=== PATIENT | male | born 1935 | race Caucasian/White ===

== ENCOUNTER 2022-01-14 12:39 | Inpatient (IN) | payer BC, MEDICARE ==
[~2022-01-14] VITALS: Ht 175.3 cm; Wt 88.1 kg
[~2022-01-14 12:39] MED LIST: HYDR-4353 PO; ZOF4T PO
[2022-01-14] MEDS ORDERED: normal saline 1000ML IV soln IVB ONE ×2 (12:55→14:40)
[2022-01-14] MEDS ORDERED: CefTRIAXone 2gm/D5W 50ml BAG 50 ML IV ONE (13:20)
--- NOTE | 2022-01-14 13:23 | NUR ---
02 SAT 78-83% RA. 10L/MIN NON-REBREATHER APPLIED. 02 SAT 99%.
[2022-01-14 13:46] LABS: BASOPHILS % (AUTO) 0.1 % (0-1); EOSINOPHILS % (AUTO) 0 % (0-6); HEMATOCRIT 35.4 % (42.0-52.0); HEMOGLOBIN 11.2 g/dl (14.0-17.9); LYMPHOCYTES # (AUTO) 0.5 X10'3 (1.1-4.8); LYMPHOCYTES % (AUTO) 6.3 % (21-51); MEAN CORPUSCULAR HEMOGLOBIN 25.6 PG (27.0-31.0); MEAN CORPUSCULAR HGB CONC 31.6 g/dL (33.0-36.5); MEAN CORPUSCULAR VOLUME 81.1 FL (78-98); MEAN PLATELET VOLUME 9.4 FL (7.4-10.4); MONOCYTES # (AUTO) 1.1 X10'3 (0-0.9); MONOCYTES % (AUTO) 13.2 % (2-12); NEUTROPHILS # (AUTO) 6.8 X10'3 (1.8-7.7); NEUTROPHILS % (AUTO) 80.4 % (42-75); PLATELET COUNT 228 X10'3 (140-440); RED BLOOD COUNT 4.37 X10'6 (4.70-6.10); WHITE BLOOD COUNT 8.5 X10'3 (4.5-11.0)
[2022-01-14 14:10] LABS: ALANINE AMINOTRANSFERASE 32 U/L (12-78); ALBUMIN 2.8 G/DL (3.4-5.0); ALBUMIN/GLOBULIN RATIO 0.7 (1.1-1.5); ALKALINE PHOSPHATASE 228 IU/L (46-116); ASPARTATE AMINO TRANSFERASE 30 U/L (10-37); BILIRUBIN,TOTAL 0.9 MG/DL (0.1-1.0); BLOOD UREA NITROGEN 53 MG/DL (7-18); BUN/CREATININE RATIO 34.4 (5.4-32.0); CALCIUM 9.1 MG/DL (8.5-10.1); CREATININE 1.54 MG/DL (0.60-1.10); GLUCOSE 131 MG/DL (70-104); TOTAL CARBON DIOXIDE 31.6 MMOL/L (24-32); TOTAL PROTEIN 6.7 G/DL (6.4-8.2); eGFR 43 ML/MIN
--- NOTE | 2022-01-14 14:12 | NUR ---
lab called troponin 211, reported to dr. brock
[2022-01-14 14:13] LABS: D-DIMER 1.81 MG/L FEU (0-0.50)
[2022-01-14] MEDS ORDERED: azithromycin/NS 500mg/250ml 250 ML IV ONE (14:40)
[2022-01-14] MEDS ORDERED: heparin 10,000 units/1 ML INJ IV PRN ×2 (15:30→17:25)
[2022-01-14] MEDS ORDERED: heparin 10,000 units/1 ML INJ IV ONE ×2 (15:30→17:25)
[2022-01-14] MEDS ORDERED: heparin 25,000 UNIT/250ml bag 250 ML IV SCH (15:30)
[2022-01-14] MEDS ORDERED: potassium Cl 20 mEq SR tablet PO PRN ×2 (15:40)
[2022-01-14] MEDS ORDERED: HYDROcodone/acetaminophen 5mg/325mg tablet PO PRN (15:40)
[2022-01-14] MEDS ORDERED: magnesium 4gm in 100ml NS 100 ML IV PRN (15:40)
[2022-01-14] MEDS ORDERED: ondansetron/PF 4mg/2ml inj IV PRN (15:40)
[2022-01-14] MEDS ORDERED: potassium CL 10mEq/100ml bag 100 ML IV PRN (15:40)
[2022-01-14] MEDS ORDERED: albuterol 2.5 MG/3 ML nebule NEB PRN (15:40)
[2022-01-14] MEDS ORDERED: HYDROcodone/acetaminophen 10/325mg tab PO PRN (15:40)
[2022-01-14] MEDS ORDERED: magnesium 2GM in 50ml NS 50 ML IV PRN (15:40)
[2022-01-14] MEDS ORDERED: acetaminophen 325mg tablet PO PRN ×2 (15:40)
[2022-01-14] MEDS ORDERED: ipratropium/albuterol 3ml nebule NEB PRN (15:40)
[2022-01-14] MEDS ORDERED: PERFLUTREN PROTEIN-A MICROSPHR (Optison) 0.22 MG/ML 3ML VIAL IV ONE (15:40)
[2022-01-14] MEDS: nitroGLYCERIN 0.1mg/hour patch TD SCH (16:10)
[2022-01-14 16:12] LABS: BASOPHILS % (AUTO) 0.5 % (0-1); EOSINOPHILS % (AUTO) 0.1 % (0-6); HEMATOCRIT 34.8 % (42.0-52.0); HEMOGLOBIN 10.9 g/dl (14.0-17.9); LYMPHOCYTES # (AUTO) 0.6 X10'3 (1.1-4.8); LYMPHOCYTES % (AUTO) 7.5 % (21-51); MEAN CORPUSCULAR HEMOGLOBIN 25.5 PG (27.0-31.0); MEAN CORPUSCULAR HGB CONC 31.3 g/dL (33.0-36.5); MEAN CORPUSCULAR VOLUME 81.4 FL (78-98); MEAN PLATELET VOLUME 9.3 FL (7.4-10.4); MONOCYTES # (AUTO) 0.9 X10'3 (0-0.9); MONOCYTES % (AUTO) 11.4 % (2-12); NEUTROPHILS # (AUTO) 6.4 X10'3 (1.8-7.7); NEUTROPHILS % (AUTO) 80.5 % (42-75); PLATELET COUNT 211 X10'3 (140-440); RED BLOOD COUNT 4.28 X10'6 (4.70-6.10); RED CELL DISTRIBUTION WIDTH 18.3 % (11.5-14.5)
--- NOTE | 2022-01-14 16:15 | NUR ---
STATES, "WHEN HE FELL YESTERDAY LEFT FOOT SWOLLEN AND BRUISED. PULSE PALPABLE.
--- NOTE | 2022-01-14 16:28 | NUR ---
dr. whatley at bedside
--- NOTE | 2022-01-14 16:30 | NUR ---
DR. CONDE STATES," DO NOT START HEPARIN DRIP UNTIL WE GET PTT RESULTS FIRST. "
[2022-01-14] MEDS ORDERED: TEST75GE TOP (17:02)
[2022-01-14] MEDS ORDERED: ATOR-2 PO (17:02)
[2022-01-14] MEDS ORDERED: LEVO88TA7 PO (17:02)
[2022-01-14] MEDS ORDERED: DAPA10TA PO (17:02)
[2022-01-14] MEDS ORDERED: FLO0.4C PO (17:02)
[2022-01-14] MEDS ORDERED: HYDR-3972 PO (17:02)
[2022-01-14] MEDS ORDERED: METO-395 PO (17:02)
[2022-01-14] MEDS ORDERED: HYDR-3686 PO (17:02)
[2022-01-14] MEDS ORDERED: SPIR25TA5 PO (17:02)
[2022-01-14] MEDS ORDERED: ASPI-611 PO (17:02)
[2022-01-14] MEDS ORDERED: FURO80TA3 PO (17:02)
[2022-01-14] MEDS ORDERED: PANT40TA54 PO (17:02)
[2022-01-14] MEDS ORDERED: TADA20TA43 PO (17:03)
--- NOTE | 2022-01-14 17:23 | NUR ---
FRANKIE FROM [facility] CALLED CANNOT DO VQ SCAN TODAY DOESNT HAVE THE DOSE. WILL BE DONE TOMORROW.
--- NOTE | 2022-01-14 18:05 | NUR ---
SPOKE WITH DR. CONDE, CANCEL ALL NORCO ORDERS. NEW ORDER NORCO 10/325MG TAB. 1/2 TAB EVERY 4 HRS.ATC
[2022-01-14] MEDS: HYDROcodone/acetaminophen 10/325mg tab PO PRN (19:04)
--- NOTE | 2022-01-14 19:07 | NUR ---
optison given in CT
[2022-01-14] MEDS: heparin 25,000 UNIT/250ml bag 250 ML IV SCH (19:25)
[2022-01-14] MEDS: K and/or MAG REPLACEMENT MC SCH (20:00)
[2022-01-14] MEDS ORDERED: furosemide 40mg/4ml inj IV SCH (20:00)
[2022-01-14] MEDS: docusate sod 100mg capsule PO SCH (20:00)
[2022-01-14 20:15] VITALS: BP 90/56
[2022-01-14 22:00] VITALS: BP 133/51
[2022-01-15] MEDS: HYDROcodone/acetaminophen 10/325mg tab PO PRN ×5 (00:16→20:38)
--- NOTE | 2022-01-15 01:50 | NUR ---
PTT due 0125, sent at 0150, after multiple attempts by 3 RNs, blood flow very slow and clotting.
[2022-01-15 06:00] VITALS: BP 107/57
[2022-01-15 07:12] LABS: BASOPHILS % (AUTO) 0.3 % (0-1); EOSINOPHILS % (AUTO) 0 % (0-6); HEMATOCRIT 35.4 % (42.0-52.0); LYMPHOCYTES # (AUTO) 0.6 X10'3 (1.1-4.8); LYMPHOCYTES % (AUTO) 6.8 % (21-51); MEAN CORPUSCULAR HGB CONC 31.1 g/dL (33.0-36.5); MEAN CORPUSCULAR VOLUME 83.7 FL (78-98); MONOCYTES % (AUTO) 12.1 % (2-12); NEUTROPHILS # (AUTO) 6.7 X10'3 (1.8-7.7); NEUTROPHILS % (AUTO) 80.8 % (42-75); PLATELET COUNT 223 X10'3 (140-440); RED BLOOD COUNT 4.22 X10'6 (4.70-6.10); RED CELL DISTRIBUTION WIDTH 18.7 % (11.5-14.5); WHITE BLOOD COUNT 8.3 X10'3 (4.5-11.0)
[2022-01-15 07:55] LABS: ALANINE AMINOTRANSFERASE 29 U/L (12-78); ALBUMIN 2.6 G/DL (3.4-5.0); ALBUMIN/GLOBULIN RATIO 0.7 (1.1-1.5); ALKALINE PHOSPHATASE 211 IU/L (46-116); ANION GAP 11 (8-16); ASPARTATE AMINO TRANSFERASE 33 U/L (10-37); BILIRUBIN,TOTAL 0.8 MG/DL (0.1-1.0); BLOOD UREA NITROGEN 55 MG/DL (7-18); BUN/CREATININE RATIO 33.7 (5.4-32.0); CHLORIDE 100 MMOL/L (99-107); CREATININE 1.63 MG/DL (0.60-1.10); GLUCOSE 127 MG/DL (70-104); MAGNESIUM 2.5 MG/DL (1.5-2.4); POTASSIUM 4.4 MMOL/L (3.5-5.1); SODIUM 136 MMOL/L (135-145); TOTAL CARBON DIOXIDE 25.2 MMOL/L (24-32); TOTAL PROTEIN 6.4 G/DL (6.4-8.2); eGFR 40 ML/MIN
[2022-01-15] MEDS ORDERED: spironolactone 25 MG tablet PO SCH ×2 (08:00→13:38)
[2022-01-15] MEDS: K and/or MAG REPLACEMENT MC SCH ×2 (08:00→20:00)
[2022-01-15] MEDS: CefTRIAXone/D5W-Rocephin 1gm 50 ML IV SCH (08:59)
[2022-01-15] MEDS: nitroGLYCERIN 0.1mg/hour patch TD SCH (09:03)
[2022-01-15] MEDS: tamsulosin 0.4mg capsule PO SCH (09:04)
[2022-01-15] MEDS: docusate sod 100mg capsule PO SCH ×2 (09:04→20:38)
[2022-01-15] MEDS: metoprolol succinate 25mg (24-HOUR) SR. Tablet PO SCH (09:05)
[2022-01-15] MEDS: aspirin 81mg, enteric-coated 1 TAB TABLET.DR PO SCH (09:06)
[2022-01-15 09:07] LABS: POTASSIUM 4.2 MMOL/L (3.3-5.1)
[2022-01-15] MEDS: levoTHYROXINE 88mcg tablet PO SCH (09:07)
[2022-01-15] MEDS: pantoprazole 40mg Tablet.DR PO SCH (09:07)
[2022-01-15] MEDS: atorvastatin 20mg tablet PO SCH (09:08)
[2022-01-15] MEDS: furosemide 40mg/4ml inj IV SCH (09:09)
[2022-01-15] MEDS ORDERED: pneumococcal 23-VAL P-sac vacc 25 mcg/0.5ml vial IMVAC ONE (10:00)
--- NOTE | 2022-01-15 10:55 | NUR ---
pt taken to [facility] for VQ scan with RN, pt is on heparin gtt, pt is alert and oriented x3, skin p/w/d, resp even and unlabored, pt is on 02 4liters nasal cannula, needed min assist to transfer from bed to wheelchair, medicated per MD order for left knee and toe pain 04/20, pt tolerated PO med well
[2022-01-15 15:00] VITALS: BP 86/52
[2022-01-15 15:39] LABS: ANION GAP 5 (8-16); CHLORIDE 98 MMOL/L (99-107); POTASSIUM 4.2 MMOL/L (3.5-5.1); SODIUM 135 MMOL/L (135-145)
[2022-01-15 18:00] VITALS: BP 90/58
[2022-01-15] MEDS: heparin 25,000 UNIT/250ml bag 250 ML IV SCH (18:03)
--- NOTE | 2022-01-15 18:25 | NUR ---
Patient in room PCU 3016. I have received report from NATASHA Trevino, had the opportunity to ask questions and assume patient care.
[2022-01-15 20:00] VITALS: BP_SYST 106; BP_SYST 108; BP_SYST 112; BP_DIAS 57; BP_DIAS 59
[2022-01-15 22:00] VITALS: BP 103/65
[2022-01-16] MEDS: heparin, porcine 5000 units/ml vial SQ SCH ×2 (00:06→08:29)
[2022-01-16] MEDS: HYDROcodone/acetaminophen 10/325mg tab PO PRN ×3 (00:17→09:57)
--- NOTE | 2022-01-16 00:40 | NUR ---
Miguelina, pt's , called PCU, enquiring about pt's status, updated on pt's current status, will visit in am , at 0800.
[2022-01-16 02:00] VITALS: BP 90/56
[2022-01-16 06:00] VITALS: BP 109/64
[2022-01-16 06:46] LABS: BASOPHILS % (AUTO) 0.4 % (0-1); EOSINOPHILS % (AUTO) 0 % (0-6); HEMATOCRIT 33.6 % (42.0-52.0); HEMOGLOBIN 10.5 g/dl (14.0-17.9); LYMPHOCYTES % (AUTO) 10.9 % (21-51); MEAN CORPUSCULAR HEMOGLOBIN 25.7 PG (27.0-31.0); MEAN CORPUSCULAR HGB CONC 31.3 g/dL (33.0-36.5); MEAN CORPUSCULAR VOLUME 82.1 FL (78-98); MEAN PLATELET VOLUME 9.5 FL (7.4-10.4); MONOCYTES # (AUTO) 1.3 X10'3 (0-0.9); MONOCYTES % (AUTO) 15.2 % (2-12); NEUTROPHILS # (AUTO) 6.4 X10'3 (1.8-7.7); NEUTROPHILS % (AUTO) 73.5 % (42-75); PLATELET COUNT 231 X10'3 (140-440); RED CELL DISTRIBUTION WIDTH 18.4 % (11.5-14.5); WHITE BLOOD COUNT 8.8 X10'3 (4.5-11.0)
--- NOTE | 2022-01-16 07:00 | NUR ---
Patient in room PCU 3016. I have received report from Martha KAUR and had the opportunity to ask questions and assume patient care.
[2022-01-16 07:04] LABS: ALANINE AMINOTRANSFERASE 27 U/L (12-78); ALBUMIN 2.6 G/DL (3.4-5.0); ALBUMIN/GLOBULIN RATIO 0.7 (1.1-1.5); ALKALINE PHOSPHATASE 229 IU/L (46-116); ANION GAP 9 (8-16); ASPARTATE AMINO TRANSFERASE 23 U/L (10-37); BILIRUBIN,TOTAL 0.6 MG/DL (0.1-1.0); BLOOD UREA NITROGEN 56 MG/DL (7-18); BUN/CREATININE RATIO 29.8 (5.4-32.0); CHLORIDE 100 MMOL/L (99-107); CREATININE 1.88 MG/DL (0.60-1.10); GLUCOSE 128 MG/DL (70-104); MAGNESIUM 2.5 MG/DL (1.5-2.4); POTASSIUM 4.5 MMOL/L (3.5-5.1); SODIUM 137 MMOL/L (135-145); TOTAL CARBON DIOXIDE 28.4 MMOL/L (24-32); TOTAL PROTEIN 6.2 G/DL (6.4-8.2); eGFR 34 ML/MIN
--- NOTE | 2022-01-16 07:39 | NUR ---
MRSA Swab done @073 Addendum: 01/16/22 at 0740 by Rachael Christie RN MRSA Swab done @0730
[2022-01-16 07:48] LABS: ACANTHOCYTES 1+; ANISOCYTOSIS 2+; BURR CELLS 2+; ELLIPTOCYTES 1+; PLATELET ESTIMATE NORMAL
[2022-01-16 07:49] LABS: SCHISTOCYTES 1+
[2022-01-16 08:00] VITALS: BP_SYST 102; BP_SYST 84; BP_DIAS 46; BP_DIAS 48; BP_DIAS 82
[2022-01-16] MEDS: K and/or MAG REPLACEMENT MC SCH (08:00)
[2022-01-16] MEDS: furosemide 40mg/4ml inj IV SCH (08:26)
[2022-01-16] MEDS: nitroGLYCERIN 0.1mg/hour patch TD SCH (08:32)
[2022-01-16] MEDS: atorvastatin 20mg tablet PO SCH (08:32)
[2022-01-16] MEDS: aspirin 81mg, enteric-coated 1 TAB TABLET.DR PO SCH (08:33)
[2022-01-16] MEDS: metoprolol succinate 25mg (24-HOUR) SR. Tablet PO SCH (08:33)
[2022-01-16] MEDS: docusate sod 100mg capsule PO SCH (08:33)
[2022-01-16] MEDS: tamsulosin 0.4mg capsule PO SCH (08:33)
[2022-01-16] MEDS: pantoprazole 40mg Tablet.DR PO SCH (08:34)
[2022-01-16] MEDS: levoTHYROXINE 88mcg tablet PO SCH (08:43)
[2022-01-16] MEDS: CefTRIAXone/D5W-Rocephin 1gm 50 ML IV SCH (10:06)
[2022-01-16] MEDS ORDERED: CARV3.122 PO (11:19)
--- NOTE | 2022-01-16 12:10 | NUR ---
Positive Orthostatic Vitals PAGER ID: [phone] MESSAGE: Patient [id number] Germain Garcia Orthostatic vitals this morning Layin/82 Sittin/48 Standin/46 Rachael LAKE RN Ext:[phone]
[2022-01-16 13:12] VITALS: BP 102/82
[2022-01-16 15:00] VITALS: BP 100/54
[2022-01-17] MEDS ORDERED: furosemide 40mg/4ml inj IV SCH (08:00)
== END 2022-01-16 16:52 | disposition home health service (06) | DRG 280 ==
LOC: ER 12:40 → ED HOLD 15:52 → EDBEDREQ 18:13 → PCU 3S 20:42
PROVIDERS: ADMIT Family Medicine; ATTEND Family Medicine
PROC: 3E0234Z Introduction of Serum, Toxoid and Vaccine into Muscle, Percutaneous Approach (ICD-10-PCS; principal; 2022-01-15)
PROC: CB121ZZ Planar Nuclear Medicine Imaging of Lungs and Bronchi using Technetium 99m (Tc-99m) (ICD-10-PCS; 2022-01-15)
PROC: 4B02XTZ Measurement of Cardiac Defibrillator, External Approach (ICD-10-PCS; 2022-01-15)
DX: I13.0 Hypertensive heart and chronic kidney disease with heart failure and stage 1 through stage 4 chronic kidney disease, or unspecified chronic kidney disease (principal); I21.A1 Myocardial infarction type 2; I50.23 Acute on chronic systolic (congestive) heart failure; J96.20 Acute and chronic respiratory failure, unspecified whether with hypoxia or hypercapnia; N17.9 Acute kidney failure, unspecified; Z20.822 Contact with and (suspected) exposure to COVID-19; N18.9 Chronic kidney disease, unspecified; N40.0 Benign prostatic hyperplasia without lower urinary tract symptoms; E03.9 Hypothyroidism, unspecified; I42.9 Cardiomyopathy, unspecified; G89.29 Other chronic pain; K21.9 Gastro-esophageal reflux disease without esophagitis; M54.50 Low back pain, unspecified; I95.9 Hypotension, unspecified; R00.0 Tachycardia, unspecified; R63.0 Anorexia; R79.89 Other specified abnormal findings of blood chemistry; I08.3 Combined rheumatic disorders of mitral, aortic and tricuspid valves; I25.10 Atherosclerotic heart disease of native coronary artery without angina pectoris; I27.20 Pulmonary hypertension, unspecified; I25.2 Old myocardial infarction; Z79.899 Other long term (current) drug therapy; Z82.5 Family history of asthma and other chronic lower respiratory diseases; Z87.442 Personal history of urinary calculi; Z95.1 Presence of aortocoronary bypass graft; Z95.810 Presence of automatic (implantable) cardiac defibrillator; Z23 Encounter for immunization; Z88.0 Allergy status to penicillin; Z68.28 Body mass index [BMI] 28.0-28.9, adult; Z79.82 Long term (current) use of aspirin
CPT/HCPCS: 36415; 71045; 73630; 78582; 80053; 83605; 83735; 83880; 84145; 84443; 84484; 85008; 85025; 85379; 85610; 85730; 87081; 87635; 90732; 93005; 93306; 94760; 96365; 96367; 99285; A9539; A9540; C9803; G0378; J0456; J0696; J1644; J1940; J7030